=== PATIENT | male | born 1960 ===

== ENCOUNTER → 2018-11-22 | Outpatient (CLI) | payer OTHER | LOC: LAB 16:49 → LAB SHORT 16:49 | DX: L02.222 Furuncle of back [any part, except buttock and flank] (principal); L08.9 Local infection of the skin and subcutaneous tissue, unspecified; D48.5 Neoplasm of uncertain behavior of skin | CPT/HCPCS: 87070; 87077; 87147; 87186; 87205 ==

== ENCOUNTER 2019-05-14 06:57 | Day surgery (SDC) | payer OTHER ==
[~2019-05-14] VITALS: Ht 180.3 cm; Wt 91.6 kg
[2019-05-14] MEDS ORDERED: ATOR80 (08:04)
[2019-05-14] MEDS ORDERED: ATEN25 (08:05)
[2019-05-14] MEDS ORDERED: OMEPRAZOLE20 MG (08:05)
== END 2019-05-14 09:07 | disposition home or self-care (01) ==
LOC: ORSCSDS 06:57
PROVIDERS: Student in an Organized Health Care Education/Training Program
PROC: 0DB68ZX Excision of Stomach, Via Natural or Artificial Opening Endoscopic, Diagnostic (ICD-10-PCS; principal; 2019-05-14 08:30)
PROC: 0DB58ZX Excision of Esophagus, Via Natural or Artificial Opening Endoscopic, Diagnostic (ICD-10-PCS; principal; 2019-05-14 08:30)
PROC: 0DB48ZX Excision of Esophagogastric Junction, Via Natural or Artificial Opening Endoscopic, Diagnostic (ICD-10-PCS; principal; 2019-05-14 08:30)
DX: R93.3 Abnormal findings on diagnostic imaging of other parts of digestive tract (principal); K31.7 Polyp of stomach and duodenum; K29.70 Gastritis, unspecified, without bleeding; K44.9 Diaphragmatic hernia without obstruction or gangrene; K21.9 Gastro-esophageal reflux disease without esophagitis; I10 Essential (primary) hypertension; Z79.899 Other long term (current) drug therapy
CPT/HCPCS: 88305; 88342; J0330; J0461; J2405; J2704; J7120